=== PATIENT | male | born 1940 | race Caucasian/White ===

== ENCOUNTER 2016-07-27 16:35 | Emergency (ER) | payer OTHER ==
[~2016-07-27] VITALS: Ht 170.2 cm; Wt 74.0 kg
[2016-07-27 16:38] VITALS: BP 164/95; PULSE 60; RESP 14; TEMP 98.1; O2SAT 95
[2016-07-27 17:21] LABS: AUTOMATED NEUTROPHIL # 3.2 TH/MM3 (1.8-7.7); BASOPHIL # 0.1 TH/MM3 (0-0.2); EOSINOPHIL # 0.1 TH/MM3 (0-0.4); HEMO FLAGS DIFF FINAL; LYMPH % 25.7 % (9.0-44.0); LYMPHOCYTE # 1.3 TH/MM3 (1.0-4.8); MEAN CELL VOLUME 90.1 FL (80.0-100.0); MEAN CORPUSCULAR HEMOGLOBIN 31.4 PG (27.0-34.0); MEAN CORPUSCULAR HGB CONC 34.8 % (32.0-36.0); MONO % 10.3 % (0.0-8.0); PLATELET COUNT 174 TH/MM3 (150-450); RED BLOOD COUNT 4.66 MIL/MM3 (4.50-5.90); RED CELL DISTRIBUTION WIDTH 13.7 % (11.6-17.2); WHITE BLOOD COUNT 5.2 TH/MM3 (4.0-11.0)
[2016-07-27 17:25] VITALS: BP 159/87; PULSE 59; RESP 20; TEMP 98.3; O2SAT 98
[2016-07-27] MEDS ORDERED: SIMV10TA PO (17:31)
[2016-07-27] MEDS ORDERED: XYZA5TAB2 PO (17:31)
[2016-07-27 17:37] LABS: ANION GAP 8 MEQ/L (5-15); BICARBONATE 27.1 MEQ/L (21.0-32.0); BLOOD UREA NITROGEN 15 MG/DL (7-18); CHLORIDE 105 MEQ/L (98-107); GLOMERULAR FILTRATION RATE 81 ML/MIN (>89); POTASSIUM 3.9 MEQ/L (3.5-5.1); SODIUM (NA) 140 MEQ/L (136-145)
--- NOTE | 2016-07-27 17:42 | PD ---
HPI Chief Complaint: Chest Pain Time Seen by Provider: 17:42 Travel History International Travel<30 days: No Contact w/Intl Traveler<30days: No Traveled to known affect area: No History of Present Illness HPI 76-year-old male presents to the emergency Department with complaint of intermittent left sided chest pain that radiates down his arm. His first episode was last night and lasted about an hour and a half. He had another episode today that lasted about 30 minutes. He denies chest pain at this time. Reports shortness of breath associated with the chest pain. Denies worsening chest pain is worse with activity. Denies heart palpitations. Reports seasonal allergies and changed his allergy medication to Xyzal, which he took one yesterday and one today. He also reports increased phlegm production, a lot more than normal, within the last month. Denies pink tinged sputum. Denies weight gain or leg edema. Reports feeling tired. Denies nausea, vomiting, fever, chills. He hasn't taken any aspirin today or any other medications or treatments to be the symptoms. Reports having a stress test in December 2015. He had an echocardiogram in March 2016. Denies having heart catheterization. Denies tobacco use. Denies family history of NH. Allergies to sulfa and A. fib. History of increased cholesterol and seasonal allergies. Has pacemaker for history of bradycardia. Primary care provider is Dr. Desouza in [place]. Thermoplastic Technician is Dr. Mckeon. [facility] Past Medical History High Cholesterol: Yes Tetanus Vaccination: < 5 Years Past Surgical History Cardiac Surgery: Yes (pacemaker) Social History Alcohol Use: No Tobacco Use: No Substance Use: No Allergies-Medications (Allergen,Severity, Reaction): Coded Allergies: Seafood (Verified Allergy, Severe, 07/27/16) Sulfa (Verified Allergy, Severe, 07/27/16) Reported Meds & Prescriptions Reported Meds & Active Scripts Active Reported Xyzal (Levocetirizine) 5 Mg Tab 5 Mg PO DAILY Simvastatin 10 Mg Tab 10 Mg PO DAILY Review of Systems Except as stated in HPI: all other systems reviewed are Neg Physical Exam Narrative GENERAL: Well-nourished, well-developed male patient, in no acute distress SKIN: Warm and dry. Palpable pacemaker to the left chest. HEAD: Atraumatic. Normocephalic. EYES: Pupils equal and round. No scleral icterus. No injection or drainage. ENT: Mucosa pink and moist. NECK: Trachea midline. No JVD. CHEST: No reproducible chest wall tenderness; no crepitance or deformity. No retractions or use of accessory muscles. CARDIOVASCULAR: Regular rate and rhythm. No murmur appreciated. RESPIRATORY: No accessory muscle use. Clear to auscultation. Breath sounds equal bilaterally. GASTROINTESTINAL: Abdomen soft, non-tender, nondistended. Hepatic and splenic margins not palpable. Bowel sounds are active 4 quadrants. MUSCULOSKELETAL: No obvious deformities. No clubbing. No cyanosis. No edema. NEUROLOGICAL: Awake and alert. Oriented 3. No obvious cranial nerve deficits. Motor grossly within normal limits. Normal speech. Moves all extremities. 5/5 strength to all extremities. PSYCHIATRIC: Appropriate mood and affect; insight and judgment normal. Data Data Last Documented VS Vital Signs Date Time Temp Pulse Resp B/P Pulse Ox O2 Delivery O2 Flow Rate FiO2 07/27/16 19:55 60 20 161/90 98 07/27/16 17:25 98.3 07/27/16 17:24 Room Air Orders Electrocardiogram (07/27/16 16:58) Complete Blood Count With Diff (07/27/16 16:58) Basic Metabolic Panel (Bmp) (07/27/16 16:58) Ckmb (Isoenzyme) Profile (07/27/16 16:58) Troponin I (07/27/16 16:58) Chest, Single Ap (07/27/16 16:58) Iv Access Insert/Monitor (07/27/16 16:58) Ecg Monitoring (07/27/16 16:58) Oxygen Administration (07/27/16 16:58) Oximetry (07/27/16 16:58) B-Type Natriuretic Peptide (07/27/16 17:37) Aspirin Chew (Aspirin Chew) (07/27/16 17:45) Prothrombin Time / Inr (Pt) (07/27/16 17:37) Act Partial Throm Time (Ptt) (07/27/16 17:37) Magnesium (Mg) (07/27/16 17:00) Troponin I (07/27/16 20:00) Labs Laboratory Tests Test 07/27/16 07/27/16 07/27/16 17:00 17:45 19:55 White Blood Count 5.2 TH/MM3 Red Blood Count 4.66 MIL/MM3 Hemoglobin 14.6 GM/DL Hematocrit 42.0 % Mean Corpuscular Volume 90.1 FL Mean Corpuscular Hemoglobin 31.4 PG Mean Corpuscular Hemoglobin 34.8 % Concent Red Cell Distribution Width 13.7 % Platelet Count 174 TH/MM3 Mean Platelet Volume 8.7 FL Neutrophils (%) (Auto) 62.0 % Lymphocytes (%) (Auto) 25.7 % Monocytes (%) (Auto) 10.3 % Eosinophils (%) (Auto) 1.0 % Basophils (%) (Auto) 1.0 % Neutrophils # (Auto) 3.2 TH/MM3 Lymphocytes # (Auto) 1.3 TH/MM3 Monocytes # (Auto) 0.5 TH/MM3 Eosinophils # (Auto) 0.1 TH/MM3 Basophils # (Auto) 0.1 TH/MM3 CBC Comment DIFF FINAL Differential Comment Sodium Level 140 MEQ/L Potassium Level 3.9 MEQ/L Chloride Level 105 MEQ/L Carbon Dioxide Level 27.1 MEQ/L Anion Gap 8 MEQ/L Blood Urea Nitrogen 15 MG/DL Creatinine 0.91 MG/DL Estimat Glomerular Filtration 81 ML/MIN Rate Random Glucose 97 MG/DL Calcium Level 8.9 MG/DL Magnesium Level 2.0 MG/DL Total Creatine Kinase 88 U/L Troponin I LESS THAN 0.02 LESS THAN 0.02 NG/ML NG/ML B-Type Natriuretic Peptide 15 PG/ML Prothrombin Time 11.2 SEC Prothromb Time International 1.0 RATIO Ratio Activated Partial 21.2 SEC Thromboplast Time MDM Medical Decision Making Medical Screen Exam Complete: Yes Emergency Medical Condition: Yes Medical Record Reviewed: Yes Differential Diagnosis NH, ACS, nonspecific chest pain, CHF Narrative Course 76-year-old male with intermittent left-sided chest pain 2 days. Patient had stress test in December 2015. He had echocardiogram in March 2016. He's never had a heart catheterization. Patient placed on cardiopulmonary monitor. IV site obtained. CBC, BMP, coags, troponin, magnesium, BNP, CK-MB ordered. Chest x-ray ordered. EKG shows electronic atrial pacemaker; without ST elevation or depression. I discussed patient with Dr. Baires, my attending physician, and he recommended if findings are normal to repeat the troponin and patient most likely discharged home with follow-up with his vb net developer. 1750: Chest x-ray concludes: Last 24 hours Impressions Chest X-Ray 07/27/16 3690 Signed Impressions: Service Date/Time: Wednesday, July 27, 2016 17:07 - CONCLUSION: 1. Mild scarring and/or atelectasis at the left lung base. Geoffrey Santiago MD CBC unremarkable. BMP were unremarkable. Total CK 88. Troponin less than 0.02. Magnesium 2.0. 1907: BNP 15. 2036: Repeat troponin less than 0.02. Patient feels comfortable going home and agrees to strict follow-up with vb net developer. Patient verbalizes understanding and agreement with treatment plan. Patient is medically cleared and stable for discharge. Discussed reasons to return to the emergency department. Instructed patient to follow up with primary care provider. Patient agrees with treatment plan. The patients vital signs are stable and the patient is stable for outpatient follow-up and treatment. Patient discharged home, stable and in no acute distress. Diagnosis Primary Impression: Chest pain Qualified Code: R07.9 - Chest pain, unspecified type Referrals: Thermoplastic Technician Primary Care Physician Patient Instructions: Chest Pain (ED), General Instructions, Noncardiac Chest Pain (ED) Additional Instructions: Follow-up with primary care provider Follow-up with cardiology Return to the emergency department immediately with worsening of symptoms Med/Other Pt SpecificInfo: No Change to Meds, No Meds Exist/No RX given Disposition: 01 DISCHARGE HOME Condition: Stable Sara Crocker Jul 27, 2016 17:42
--- NOTE | 2016-07-27 17:42 | RADRPT ---
EXAM DATE/TIME: 07/27/2016 17:07 [facility] COMPARISON: No previous studies available for comparison. INDICATIONS : Chest pain. MEDICAL HISTORY : None. SURGICAL HISTORY : Pacemaker. ENCOUNTER: Initial ACUITY: 1 day PAIN SCORE: 3/10 LOCATION: Bilateral chest FINDINGS: A single view of the chest demonstrates the lungs to be symmetrically aerated without evidence of mas s, infiltrate or effusion. The cardiomediastinal contours are unremarkable. Osseous structures are intact. There is a left subclavian AV sequential transvenous pacer in place. There is mild scarring o r atelectasis at the left lung base. CONCLUSION: 1. Mild scarring and/or atelectasis at the left lung base. Geoffrey Santiago MD on July 27, 2016 at 17:41 Board Certified Radiologist. This report was verified electronically.
[2016-07-27 17:43] LABS: CREATINE KINASE 88 U/L (39-308)
[2016-07-27] MEDS ORDERED: ASPIRIN 81 MG CHEW TAB PO ONE (17:45)
[2016-07-27 18:15] LABS: APTT (PATIENT) 21.2 SEC (24.3-30.1); PROTHROMBIN TIME - PATIENT 11.2 SEC (9.8-11.6)
[2016-07-27 19:55] VITALS: BP 161/90; PULSE 60; RESP 20; O2SAT 98
--- NOTE | 2016-07-28 14:47 | EKG ---
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
== END 2016-07-27 21:57 | disposition home or self-care (01) ==
LOC: NEPA 16:35
DX: R07.9 Chest pain, unspecified (principal); R06.02 Shortness of breath; R94.31 Abnormal electrocardiogram [ECG] [EKG]
CPT/HCPCS: 71010; 80048; 82550; 83735; 83880; 84484; 85025; 85610; 85730; 93005